=== PATIENT | male | born 2000 | race Two or more races ===

== ENCOUNTER 2025-06-09 13:45 | Emergency (ER) | payer OTHER ==
[~2025-06-09] VITALS: Ht 162.6 cm; Wt 136.2 kg
[2025-06-09 13:49] VITALS: BP 136/86; PULSE 84; RESP 16; TEMP 98.2; O2SAT 98
[2025-06-09] MEDS ORDERED: METH-1181 PO (15:46)
[2025-06-09] MEDS ORDERED: IBUP-1455 PO (15:46)
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
== END 2025-06-09 16:00 | disposition home or self-care (01) ==
LOC: ER 13:45
DX: M54.2 Cervicalgia (principal); M54.9 Dorsalgia, unspecified; R05.9 Cough, unspecified; V49.9XXA Car occupant (driver) (passenger) injured in unspecified traffic accident, initial encounter; Y92.410 Unspecified street and highway as the place of occurrence of the external cause; Y93.89 Activity, other specified; Y99.8 Other external cause status